=== PATIENT | male | born 1960 | race Caucasian/White ===

== ENCOUNTER 2017-09-27 10:17 | Emergency (ER) | payer OTHER ==
[~2017-09-27] VITALS: Ht 172.7 cm; Wt 86.2 kg
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
[2017-09-27] MEDS ORDERED: TOPROL XL50 M1 PO (10:38)
[2017-09-27] MEDS ORDERED: WELLBUTRIN XL300 M2 PO (10:38)
[2017-09-27] MEDS ORDERED: COUMADIN5 M2 PO (10:38)
[2017-09-27] MEDS ORDERED: LAMICTAL150 M1 PO (10:39)
[2017-09-27] MEDS ORDERED: ASPIRIN EC81 M1 PO (10:39)
[2017-09-27 10:49] LABS: ABSOLUTE BASOPHIL COUNT 0 /CUMM (0.0-0.2); ABSOLUTE EOSINOPHIL COUNT 0.2 /CUMM (0.0-0.7); ABSOLUTE GRANULOCYTE CT 4.2 /CUMM (1.4-6.5); ABSOLUTE LYMPH COUNT 1.5 /CUMM (1.2-3.4); ABSOLUTE MONOCYTE COUNT 0.6 /CUMM (0.10-0.60); BASOPHIL % 0.4 % (0.0-2.0); EOSINOPHIL % 2.4 % (0-5); HEMATOCRIT 40.8 % (42-52); MEAN CORPUSCULAR HGB 28.1 PG (27.0-31.0); MEAN CORPUSCULAR HGB CONC 33.2 G/DL (33.0-37.0); MEAN CORPUSCULAR VOLUME 84.5 FL (80.0-94.0); MEAN PLATELET VOLUME 7.4 FL (7.4-10.4); PLATELET COUNT 315 /CUMM (130-400); RBC DISTRIBUTION WIDTH 14.3 % (11.5-14.5); RED BLOOD CELL CT 4.82 /CUMM (4.70-6.10); WHITE BLOOD CELL COUNT 6.5 /CUMM (4.8-10.8)
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
[2017-09-27 11:21] VITALS: BP 120/75
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
== END 2017-09-27 12:12 | disposition short-term general hospital (02) ==
LOC: ERH 10:17
PROVIDERS: Physician Assistant
DX: T20.20XA Burn of second degree of head, face, and neck, unspecified site, initial encounter (principal); X19.XXXA Contact with other heat and hot substances, initial encounter; Y92.89 Other specified places as the place of occurrence of the external cause; Y93.89 Activity, other specified
CPT/HCPCS: 71045; 93005; 93010; 96361; 96374